=== PATIENT | female | born 1960 | race Caucasian/White ===

== ENCOUNTER 2017-05-18 06:05 | Emergency (ER) | payer OTHER ==
[~2017-05-18] VITALS: Ht 152.4 cm; Wt 53.6 kg
[2017-05-18 06:09] VITALS: BP 117/78; PULSE 77; RESP 18; TEMP 97.2; O2SAT 95
[2017-05-18] MEDS ORDERED: STATIN PO (06:19)
[2017-05-18] MEDS ORDERED: RIVA1DIS T-DERMAL (06:23)
[2017-05-18 06:30] VITALS: RESP 18; O2SAT 96
[2017-05-18] MEDS ORDERED: ONDANSETRON HCL 4 MG/2 ML VIAL IV ONE (06:30)
[2017-05-18] MEDS ORDERED: SODIUM CHLOR 0.9% 1000 ML INJ 1,000 ML IV SCH (06:30)
[2017-05-18] MEDS ORDERED: METOCLOPRAMIDE HCL 10 MG/2 ML VIAL IVS ONE ×2 (06:45→07:00)
[2017-05-18 06:50] LABS: AUTOMATED NEUTROPHIL # 2.3 TH/MM3 (1.8-7.7); BASOPHIL # 0.1 TH/MM3 (0-0.2); BASOPHIL % 0.9 % (0.0-2.0); EOSINOPHIL # 0.2 TH/MM3 (0-0.4); EOSINOPHIL % 3.7 % (0.0-4.0); HEMATOCRIT 39.2 % (35.0-46.0); HEMO FLAGS DIFF FINAL; LYMPH % 49.7 % (9.0-44.0); LYMPHOCYTE # 2.8 TH/MM3 (1.0-4.8); MEAN CELL VOLUME 87.9 FL (80.0-100.0); MEAN CORPUSCULAR HEMOGLOBIN 28.2 PG (27.0-34.0); MONO % 6.7 % (0.0-8.0); PLATELET COUNT 237 TH/MM3 (150-450); RED BLOOD COUNT 4.46 MIL/MM3 (4.00-5.30); RED CELL DISTRIBUTION WIDTH 13.1 % (11.6-17.2); WHITE BLOOD COUNT 5.8 TH/MM3 (4.0-11.0)
--- NOTE | 2017-05-18 06:56 | PD ---
HPI Chief Complaint: GI Complaint Time Seen by Provider: 06:25 Travel History International Travel<30 days: No Contact w/Intl Traveler<30days: No Traveled to known affect area: No History of Present Illness HPI The patient is a 57-year-old female that complains of nausea and vomiting without diarrhea that started this morning. She is very weak and had to call the ambulance. She was given 4 mg of Zofran in route by the [facility] on fire rescue. She denies any fever or vomiting any blood. She denies any abdominal pain. She had a lipoma section 10 days ago but is not on any medications for this. She has a mild bi-frontal headache which he states is an 8/10 and the headache is of gradual onset. She denies any history of bowel problems. She has had a hysterectomy, cholecystectomy and appendectomy. She does not smoke. PFSH Past Medical History High Cholesterol: Yes Diminished Hearing: No Immunizations Current: No Seizures: Yes Tetanus Vaccination: Unknown Influenza Vaccination: Yes ?: Not Past Surgical History Hysterectomy: Yes Social History Alcohol Use: No Tobacco Use: No (QUIT 35+ ) Substance Use: No Allergies-Medications (Allergen,Severity, Reaction): Coded Allergies: latex (Verified Allergy, Severe, Hives, 05/18/17) Uncoded Allergies: PCN (Allergy, Severe, Hives, 05/18/17) Reported Meds & Prescriptions Reported Meds & Active Scripts Active Reported Rivastigmine Patch (Rivastigmine) 4.6 mg/24 hr Patch 1 Patch T-DERMAL DAILY [Statin ] 10 Mg PO HS Review of Systems Except as stated in HPI: all other systems reviewed are Neg Physical Exam Narrative GENERAL: The patient appears moderately dehydrated but is alert and oriented 3. She appears very weak. Her vital signs show temperature 97.2 but otherwise normal. SKIN: Focused skin assessment warm/dry. No skin rash is present. HEAD: Atraumatic. Normocephalic. EYES: Pupils equal and round. No scleral icterus. No injection or drainage. ENT: No nasal bleeding or discharge. Mucous membranes pink and moist. NECK: Trachea midline. No JVD. There is no meningismus present. CARDIOVASCULAR: Regular rate and rhythm. No murmur appreciated. RESPIRATORY: No accessory muscle use. Clear to auscultation. Breath sounds equal bilaterally. GASTROINTESTINAL: Abdomen soft, non-tender, nondistended. Hepatic and splenic margins not palpable. No guarding or rebound is present. MUSCULOSKELETAL: No obvious deformities. No clubbing. No cyanosis. No edema. NEUROLOGICAL: Awake and alert. No obvious cranial nerve deficits. Motor grossly within normal limits. Normal speech. PSYCHIATRIC: Appropriate mood and affect; insight and judgment normal. Data Data Last Documented VS Vital Signs Date Time Temp Pulse Resp B/P (MAP) Pulse Ox O2 Delivery O2 Flow Rate FiO2 05/18/17 06:30 18 96 Room Air 05/18/17 06:09 97.2 77 117/78 (91) Orders Orders Ondansetron Inj (Zofran Inj) (05/18/17 06:30) Sodium Chlor 0.9% 1000 Ml Inj (Ns 1000 M (05/18/17 06:30) Complete Blood Count With Diff (05/18/17 06:28) Comprehensive Metabolic Panel (05/18/17 06:28) Urinalysis - C+S If Indicated (05/18/17 06:28) Iv Access Insert/Monitor (05/18/17 06:28) Oximetry (05/18/17 06:28) Lipase (05/18/17 06:28) Metoclopramide Inj (Reglan Inj) (05/18/17 06:45) Labs Laboratory Tests Test 05/18/17 06:35 White Blood Count 5.8 TH/MM3 Red Blood Count 4.46 MIL/MM3 Hemoglobin 12.6 GM/DL Hematocrit 39.2 % Mean Corpuscular Volume 87.9 FL Mean Corpuscular Hemoglobin 28.2 PG Mean Corpuscular Hemoglobin Concent 32.0 % Red Cell Distribution Width 13.1 % Platelet Count 237 TH/MM3 Mean Platelet Volume 8.8 FL Neutrophils (%) (Auto) 39.0 % Lymphocytes (%) (Auto) 49.7 % Monocytes (%) (Auto) 6.7 % Eosinophils (%) (Auto) 3.7 % Basophils (%) (Auto) 0.9 % Neutrophils # (Auto) 2.3 TH/MM3 Lymphocytes # (Auto) 2.8 TH/MM3 Monocytes # (Auto) 0.4 TH/MM3 Eosinophils # (Auto) 0.2 TH/MM3 Basophils # (Auto) 0.1 TH/MM3 CBC Comment DIFF FINAL Differential Comment MDM Medical Decision Making Medical Screen Exam Complete: Yes Emergency Medical Condition: Yes Medical Record Reviewed: Yes Differential Diagnosis Gastritis, food poisoning, small bowel obstruction-unlikely, dehydration, electrolyte disorder, pancreatitis Narrative Course It is now 0656 and the patient is transferred to Dr. Velez. Hiro Lemons MD May 18, 2017 06:56
[2017-05-18 07:00] LABS: CHLORIDE 104 MEQ/L (98-107); POTASSIUM 3.8 MEQ/L (3.5-5.1); SODIUM (NA) 138 MEQ/L (136-145)
[2017-05-18 07:04] LABS: ANION GAP 7 MEQ/L (5-15); BICARBONATE 26.7 MEQ/L (21.0-32.0); BLOOD UREA NITROGEN 12 MG/DL (7-18)
[2017-05-18 07:06] VITALS: BP 109/63; PULSE 78; RESP 18; O2SAT 98
[2017-05-18 07:06] LABS: ALT (GPT) 20 U/L (10-53); AST (GOT) 19 U/L (15-37)
[2017-05-18 07:07] LABS: GLOMERULAR FILTRATION RATE 81 ML/MIN (>89)
[2017-05-18 07:08] LABS: TOTAL BILIRUBIN ADULT 0.7 MG/DL (0.2-1.0)
[2017-05-18 07:09] LABS: ALKALINE PHOSPHATASE 60 U/L (45-117)
[2017-05-18 07:16] LABS: BLOOD, URINE TRACE (NEG); GLUCOSE,URINE NEG (NEG); KETONE, URINE NEG (NEG); NITRITE,URINE NEG (NEG)
[2017-05-18 07:20] LABS: METHOD OF COLLECTION CLEAN CATCH; URINE COLOR YELLOW (YELLW/STRAW)
[2017-05-18 07:21] LABS: BACTERIA, URINE OCC /hpf; COMMENT (UR) CULT NOT INDICATED; CULTURE IF INDICATED CULT NOT INDICATED; RBC, URINE 0-3 /hpf (0-3); SQUAMOUS EPITHELIAL CELL URINE 0-5 /hpf (0-5); WBC, URINE 0-2 /hpf (0-5)
[2017-05-18] MEDS ORDERED: IOHEXOL 350 MG/ML 10 ML VIAL (for RAD DIAG) IVCONTRAST ONE (08:00)
--- NOTE | 2017-05-18 08:08 | RADRPT ---
EXAM DATE/TIME: 05/18/2017 07:50 [facility] COMPARISON: No previous studies available for comparison. INDICATIONS : Nausea and vomiting. IV CONTRAST: 85 cc Omnipaque 350 (iohexol) IV ORAL CONTRAST: No oral contrast ingested. RADIATION DOSE: 5.26 CTDIvol (mGy) MEDICAL HISTORY : Seizures. SURGICAL HISTORY : Appendectomy. Cholecystectomy.Hysterectomy.Tubal ligation. ENCOUNTER: Initial ACUITY: 1 day PAIN SCALE: 0/10 LOCATION: Abdomen. TECHNIQUE: Volumetric scanning of the abdomen and pelvis was performed. Using automated exposure control and ad justment of the mA and/or kV according to patient size, radiation dose was kept as low as reasonably achievable to obtain optimal diagnostic quality images. DICOM format image data is available electro nically for review and comparison. FINDINGS: LOWER LUNGS: The visualized lower lungs are clear. LIVER: Homogeneous density without lesion. There is no dilation of the biliary tree. Gallbladder is surgica lly absent. SPLEEN: Normal size without lesion. PANCREAS: Within normal limits. KIDNEYS: Normal in size and shape. Subcentimeter hypodense cystic lesion in the inferior pole of the right ki dney is too small to characterize but statistically reflects a cyst. There is no mass, stone or hydro nephrosis. ADRENAL GLANDS: Within normal limits. VASCULAR: There is no aortic aneurysm. BOWEL/MESENTERY: The stomach, small bowel, and colon demonstrate no acute abnormality. There is no free intraperitone al air or fluid. ABDOMINAL WALL: Within normal limits. RETROPERITONEUM: There is no lymphadenopathy. BLADDER: No wall thickening or mass. REPRODUCTIVE: Uterus is surgically absent. INGUINAL: There is no lymphadenopathy or hernia. MUSCULOSKELETAL: Within normal limits for patient age. CONCLUSION: 1. No acute CT abnormality in the abdomen or pelvis. Specifically, the bowel appears unremarkable. Juan Luis Mata MD on May 18, 2017 at 8:02 Board Certified Radiologist. This report was verified electronically.
[2017-05-18] MEDS ORDERED: ZOFR4TAB3 SL (08:28)
--- NOTE | 2017-05-18 08:28 | PD ---
Data Data Last Documented VS Vital Signs Date Time Temp Pulse Resp B/P (MAP) Pulse Ox O2 Delivery O2 Flow Rate FiO2 05/18/17 07:06 78 18 109/63 (78) 98 Room Air 05/18/17 06:09 97.2 Orders Orders Ondansetron Inj (Zofran Inj) (05/18/17 06:30) Sodium Chlor 0.9% 1000 Ml Inj (Ns 1000 M (05/18/17 06:30) Complete Blood Count With Diff (05/18/17 06:28) Comprehensive Metabolic Panel (05/18/17 06:28) Urinalysis - C+S If Indicated (05/18/17 06:28) Iv Access Insert/Monitor (05/18/17 06:28) Oximetry (05/18/17 06:28) Lipase (05/18/17 06:28) Metoclopramide Inj (Reglan Inj) (05/18/17 06:45) Electrocardiogram (05/18/17 ) Ct Abd/Pel W Iv Contrast(Rout) (05/18/17 ) Iohexol 350 Inj (Omnipaque 350 Inj) (05/18/17 08:00) Labs Laboratory Tests Test 05/18/17 06:35 05/18/17 07:10 White Blood Count 5.8 TH/MM3 Red Blood Count 4.46 MIL/MM3 Hemoglobin 12.6 GM/DL Hematocrit 39.2 % Mean Corpuscular Volume 87.9 FL Mean Corpuscular Hemoglobin 28.2 PG Mean Corpuscular Hemoglobin Concent 32.0 % Red Cell Distribution Width 13.1 % Platelet Count 237 TH/MM3 Mean Platelet Volume 8.8 FL Neutrophils (%) (Auto) 39.0 % Lymphocytes (%) (Auto) 49.7 % Monocytes (%) (Auto) 6.7 % Eosinophils (%) (Auto) 3.7 % Basophils (%) (Auto) 0.9 % Neutrophils # (Auto) 2.3 TH/MM3 Lymphocytes # (Auto) 2.8 TH/MM3 Monocytes # (Auto) 0.4 TH/MM3 Eosinophils # (Auto) 0.2 TH/MM3 Basophils # (Auto) 0.1 TH/MM3 CBC Comment DIFF FINAL Differential Comment Blood Urea Nitrogen 12 MG/DL Creatinine 0.74 MG/DL Random Glucose 143 MG/DL Total Protein 7.1 GM/DL Albumin 3.5 GM/DL Calcium Level 8.6 MG/DL Alkaline Phosphatase 60 U/L Aspartate Amino Transf (AST/SGOT) 19 U/L Alanine Aminotransferase (ALT/SGPT) 20 U/L Total Bilirubin 0.7 MG/DL Sodium Level 138 MEQ/L Potassium Level 3.8 MEQ/L Chloride Level 104 MEQ/L Carbon Dioxide Level 26.7 MEQ/L Anion Gap 7 MEQ/L Estimat Glomerular Filtration Rate 81 ML/MIN Lipase 142 U/L Urine Collection Type CLEAN CATCH Urine Color YELLOW Urine Turbidity CLEAR Urine pH 7.0 Urine Specific [place] 1.012 Urine Protein NEG mg/dL Urine Glucose (UA) NEG mg/dL Urine Ketones NEG mg/dL Urine Occult Blood TRACE Urine Nitrite NEG Urine Bilirubin NEG Urine Leukocyte Esterase SMALL Urine RBC 0-3 /hpf Urine WBC 0-2 /hpf Urine Squamous Epithelial Cells 0-5 /hpf Urine Bacteria OCC /hpf Microscopic Urinalysis Comment CULT NOT INDICATED Urine Collection Time 07:10 MDM Supervised Visit with [facility]LAYNE: No Narrative Course This is a 57-year-old female who presents to the emergency department having been seen by Dr. Lemons earlier in the night for nausea and vomiting. She did have Thanksgiving dinner yesterday. She had a surgery 3 weeks ago on an area of her stomach that she describes as liposuction. Labs were unremarkable and urinalysis is reassuring. I obtained a CT abdomen and pelvis which was unremarkable. And doesn't have any chest pain, trouble breathing or other symptoms. I suspect she has food poisoning. I offered her observation but she wanted to go home. Patient will be discharged with antiemetics. Diagnosis Primary Impression: Vomiting Qualified Codes: R11.2 - Nausea with vomiting, unspecified Patient Instructions: General Instructions Additional Instruction: If you develop lightheadedness, dizziness, persistent vomiting, inability to eat , or severe abdominal pain return to the emergency department. Followup with your primary care physician in 2-3 days if your symptoms have not resolved. Wash your hands agressively after using the restroom as to not spread your illness to others. Do not return to work until your symptoms have resolved. Take Zofran as needed for nausea. Med/Other Pt SpecificInfo: Prescription(s) given Scripts Ondansetron Odt (Zofran Odt) 4 Mg Tab 4 MG SL Q6HR Y for Nausea/Vomiting, #15 TAB 0 Refills Prov: Charito Velez MD 05/18/17 Disposition: 01 DISCHARGE HOME Condition: Stable Charito Velez MD May 18, 2017 08:28
--- NOTE | 2017-05-18 13:02 | EKG ---
Date Performed: 05/18/2017 Time Performed: 08:34:12 PTAGE: 57 years EKG: Sinus rhythm BORDERLINE LEFT AXIS DEVIATION BORDERLINE ECG NO PREVIOUS TRACING DOCTOR: Sae Escobar Interpretating Date/Time 05/18/2017 13:01:36
== END 2017-05-18 08:51 | disposition home or self-care (01) ==
LOC: PHED 06:05
DX: R11.2 Nausea with vomiting, unspecified (principal); R51 Headache; E78.00 Pure hypercholesterolemia, unspecified; Z79.899 Other long term (current) drug therapy
CPT/HCPCS: 74177; 80053; 81001; 83690; 85025; 93005; 96361; 96374; 96375; 99285; J2405; J2765; J7030; Q9967